=== PATIENT | male | born 1975 | race African-American/Black ===

== ENCOUNTER 2019-01-20 11:30 | Emergency (ER) | payer MEDICAID ==
[~2019-01-20] VITALS: Ht 185.4 cm; Wt 74.0 kg
[2019-01-20] MEDS ORDERED: ALBUTEROL (0.083%) 2.5MG/3ML NEB HHN STA (12:23)
[2019-01-20] MEDS ORDERED: IPRATROPIUM BROMIDE (0.02%) 0.5MG/2.5ML NEB HHN STA (12:23)
[2019-01-20] MEDS ORDERED: DEXAMETHASONE 4MG TABLET PO ONE (12:30)
[2019-01-20 15:11] VITALS: BP 135/80
== END 2019-01-20 15:11 | disposition home or self-care (01) ==
LOC: ER 11:37
DX: J45.901 Unspecified asthma with (acute) exacerbation (principal); F12.10 Cannabis abuse, uncomplicated
CPT/HCPCS: 94640; 99283; J7611; J8540; Z7610